=== PATIENT | male | born 1960 | race Caucasian/White ===

== ENCOUNTER → 2019-02-11 | Outpatient (CLI) | payer OTHER ==
--- NOTE | 2019-02-11 13:34 | RADIOLOGY REPORT (SQ) ---
EXAM DESCRIPTION: MRI THORACIC SPINE WITHOUT COMPLETED DATE/TIME: 02/11/2019 10:45 am REASON FOR STUDY: BACK PAIN M54.5 LOW BACK PAIN COMPARISON: None. TECHNIQUE: Sagittal and Axial imaging includes T1, T2, STIR and gradient echo sequences. LIMITATIONS: None. FINDINGS: LOCALIZER: No worrisome findings. ALIGNMENT: Normal. VERTEBRAE: Intact. BONE MARROW: Normal. No marrow replacement or reactive changes. HARDWARE: None in the spine. CORD: Normal in size and signal intensity. SOFT TISSUES: No soft tissue masses. THORACIC DISCS T1-T12: Left paracentral disc/ osteophyte complex at T3-4 that contacts the spinal cor d. Mild broad-based disc/ osteophyte complex at T5-6 with no central canal or foraminal stenosis. R ight paracentral disc/ osteophyte complex at C6-7 slightly deforms the spinal cord. Midline and left paracentral disc/ osteophyte complex at T7-8 displaces and deforms the spinal cord. Right paracentr al disc/ osteophyte complex at T8-9. No central canal or foraminal stenosis. Broad-based disc/ oste ophyte complex at T9-10 may contact the cord on the right. LOWER CERVICAL: Incompletely imaged. No significant spinal stenosis or exit foraminal stenosis. UPPER LUMBAR: Incompletely imaged. No significant spinal stenosis or exit foraminal stenosis. OTHER: No other significant finding. IMPRESSION: Multilevel thoracic disc changes. The most significant finding appears to be at T7-8 as described. TECHNICAL DOCUMENTATION: JOB ID: [id number] [id number]- All Rights Reserved Reading location - IP/workstation name: [email or web address]
--- NOTE | 2019-02-11 13:42 | RADIOLOGY REPORT (SQ) ---
EXAM DESCRIPTION: MRI LUMBAR SPINE WITHOUT COMPLETED DATE/TIME: 02/11/2019 10:45 am REASON FOR STUDY: BACK PAIN M54.5 LOW BACK PAIN COMPARISON: None. TECHNIQUE: Sagittal and Axial imaging includes T1, T2, STIR and gradient echo sequences. Coronal T2/ HASTE imaging. LIMITATIONS: None. FINDINGS: VISUALIZED UPPER ABDOMEN: Limited evaluation. No acute or suspicious findings suggested. SEGMENTATION: No transitional anatomy. The lowest well-developed disc space is labeled L5-S1. ALIGNMENT: Anatomic. VERTEBRAE: Intact. BONE MARROW: Normal. No marrow replacement or reactive changes. DISC SIGNAL: Normal. No significant abnormal signal or loss of height. POSTERIOR ELEMENTS: Generally intact. No pars defect evident. HARDWARE: None in the spine. CORD AND CONUS: Normal in size and signal intensity. Conus at the L1 level. SOFT TISSUES: No aortic aneurysm seen. No bulky retroperitoneal adenopathy or mass. No paraspinal mas s or fluid. L1-L2: No significant spinal stenosis or exit foraminal stenosis. L2-L3: Facet and ligament hypertrophy that indents the thecal sac laterally on the left. L3-L4: Shallow, broad-based disc bulge that narrows the anterior CSF space. L4-L5: Shallow broad-based disc bulge. Facet arthropathy. Moderate central canal stenosis. The bul ging disc may contact the exiting nerve root on the right outside of the neural foramen. L5-S1: No significant spinal stenosis or exit foraminal stenosis. LOWER THORACIC: Incompletely imaged. No stenosis seen. SACRUM: Visualized upper sacrum intact. OTHER: No other significant findings. IMPRESSION: Mild, multilevel disc changes. Facet arthropathy indents the thecal sac on the left at L2-3. Moderate central canal stenosis at L4-5. The bulging disc may contact the exiting nerve root on the right outside of the neural foramen. TECHNICAL DOCUMENTATION: JOB ID: [id number] [employer]- All Rights Reserved Reading location - IP/workstation name: [email or web address]
== END ==
LOC: RAD 09:23
PROVIDERS: ATTEND Family Medicine
DX: M54.5 Low back pain (principal); M48.061 Spinal stenosis, lumbar region without neurogenic claudication; M51.84 Other intervertebral disc disorders, thoracic region
CPT/HCPCS: 72146; 72148